=== PATIENT | female | born 1950 | race Caucasian/White ===

== ENCOUNTER → 2019-04-11 16:19 | Outpatient (CLI) | payer MEDICARE, OTHER, SELFPAY ==
[2019-04-11 10:19] VITALS: BMI 26.9
[2019-04-11 17:54] LABS: Anion Gap 9 (5-15); BUN 23 mg/dL (7-18); BUN/Creat Ratio 25.1 RATIO (10-20); Calcium,Total 9.6 mg/dL (8.5-10.1); Chloride 102 mmol/L (98-107); Creatinine, Serum 0.92 mg/dL (0.55-1.02); EST Glomerular Filtration Rate 65 mL/min (>60); Est Glom Filt Rate - Afr Amer 79 mL/min (>60); Glucose 147 mg/dL (74-106); Potassium 3.6 mmol/L (3.5-5.1); Sodium Level 141 mmol/L (136-145); Thyroid Stim Hormone (TSH) 6.45 uIU/mL (0.358-3.74)
== END ==
PROVIDERS: Family Provider Family Medicine; PCP Family Medicine; Referring Provider Internal Medicine Cardiovascular Disease; Visit Provider Internal Medicine Cardiovascular Disease
DX: I10 Essential (primary) hypertension (principal)
CPT/HCPCS: 36415; 80048; 84443

== ENCOUNTER 2020-09-19 14:15 | Emergency (ER) | payer MEDICARE, OTHER, SELFPAY ==
[2020-04-29 12:29] VITALS: BMI 25.9
[2020-09-19 14:17] VITALS: BP 154/105; PULSE 93; RESP 18; TEMP 36.6; O2SAT 95; BMI 26.6
[2020-09-19 15:02] LABS: Bacteria 0 SEEN /hpf (None Seen); Mucous, Urine 0 SEEN /hpf (<or=2+); Red Blood Cells-Urine 0 SEEN /hpf (0-5)
[2020-09-19 15:09] LABS: Glucose, Dipstick 250 mg/dl (Normal); Ketone-Dipstick Negative (Negative); Leukocyte Esterase-Dipstick 25 /ul (Negative); Nitrite-Dipstick Positive (Negative); Occult Blood-Urine Negative /ul (Negative); Protein-Dipstick 15 mg/dl (Negative); Specific Gravity, Urine 1.015 (1.002-1.030); Urine Clarity Clear (Clear); Urine Urobilinogen 4 mg/dl (Normal)
[2020-09-19 15:12] LABS: Color, Urine SEE COMMENT BELOW (Yellow); Urine Bilirubin Dipstick 3 mg/dL (Negative)
[2020-09-19 15:15] LABS: Squamous Epithelial Cells - UA 5-10 SEEN /hpf (5-10); White Blood Cells 0-5 SEEN /hpf (0-5)
--- NOTE | 2020-09-19 15:29 | ED.VIS.GEN ---
History of Present Illness Chief Complaint: Lower Extremity Injury Narrative: Patient presents with 2 complaints, she has dysuria consistent with a urinary tract infection for the past few days, she has also had left lower extremity swelling and some calf pain. She does not have any DVT or PE risk factors, no recent injury. He has no chest pain or shortness of breath. She denies any abdominal pain or flank pain. No fever or chills. Past medical history: Reviewed Medications: Reviewed Social history: Noncontributory Review of systems: All systems negative except as indicated General: No fever Eyes: No visual changes ENT: No upper airway congestion, normal voice Neck: No neck pain Cardiovascular: No chest pain Respiratory: No shortness of breath or cough Gastrointestinal: No abdominal pain, nausea vomiting or diarrhea Genitourinary: Dysuria, urgency and frequency dysuria Musculoskeletal: Lower extremity edema Skin: No rash Neurological: No memory loss, confusion or any focal weakness Psych: No recent behavioral changes Hematologic: No easy bleeding or easy bruising Physical exam General: Well nourished, Well developed, No Acute Distress Head: Normocephalic, Atraumatic Eyes: Conjunctiva not pale ENT: Moist mucous membranes Neck: Supple, Nontender, No lymphadenopathy Cardiovascular: Regular rate, Regular rhythm Respiratory: No distress, CTA bilaterally Abdomen: Soft, Nontender, Nondistended Back: Nontender, Normal Inspection. Negative for: CVA tenderness Extremities: Tenderness over the left lower extremity anteriorly there is very slight edema. There is no erythema or [place]. No calf pain to palpation. Skin: Normal color, No rash Neurological: Alert, Normal Strength, Normal Sensation Psychological: Normal affect Past Medical History - Allergies and Home Meds Allergies/Adverse Reactions: Allergies codeine Allergy (Verified 09/19/20 14:16) stomach upset Primary Care Physician: Cristino Sotelo DO [Primary Care Provider] - Smoking Status: Never smoker Physical Exam Vital Signs/Narrative: Vital Signs Temp Pulse Resp BP Pulse Ox 09/19/20 14:17 97.8 F 93 18 154/105 H 95 Diagnostic/Tx/Re-eval - Medical Decision Making Urinalysis is positive for urinary tract infection, per our hospital protocol patient will be given Lovenox subcu, she will come back tomorrow morning for a DVT study. Otherwise I will treat her urinary tract infection and give her Diflucan after her antibiotics. ED Disposition - Plan for ED Patient: Diagnosis: Lower extremity edema, Urinary tract infection Instructions: ED Peripheral Edema, Unilateral, ED Bladder Infection, Female (Adult) Prescriptions: Smz/Tmp Ds [Bactrim Ds] 1 tablet PO BID #14 tab Prescription Printed Referrals: Cristino Sotelo DO [Primary Care Provider] - 2 Days Additional Instructions: You will be set up for an ultrasound tomorrow morning, please return to make sure you do not have a blood clot.
--- NOTE | 2020-09-19 15:39 | DCINST.ED_ITS ---
ED Disposition - Plan for ED Patient: Diagnosis: Lower extremity edema, Urinary tract infection Instructions: ED Peripheral Edema, Unilateral, ED Bladder Infection, Female (Adult) Prescriptions: Smz/Tmp Ds [Bactrim Ds] 1 tablet PO BID #14 tab Prescription Printed Fluconazole [Diflucan] 150 mg PO X1 #1 tablet Transmission Status: Pending to [facility] Tizanidine HCl 2 mg PO BID #10 tablet Transmission Status: Pending to [facility] Referrals: Cristino Sotelo DO [Primary Care Provider] - 2 Days Additional Instructions: You will be set up for an ultrasound tomorrow morning, please return to make sure you do not have a blood clot.
[2020-09-19] MEDS: Enoxaparin 80 MG/0.8 ML Syringe 70 MG SC (15:42)
[2020-09-19] MEDS: Smz/Tmp Ds Tablet 1 TABLET PO (15:43)
[2020-09-19 15:48] VITALS: BP 148/97; PULSE 88; RESP 17; O2SAT 95
== END 2020-09-19 15:49 | disposition home or self-care (01) ==
PROVIDERS: Emergency Provider Emergency Medicine; PCP Family Medicine
DX: R60.0 Localized edema (principal); N39.0 Urinary tract infection, site not specified; M79.662 Pain in left lower leg; Z79.899 Other long term (current) drug therapy
CPT/HCPCS: 81001; 96372; 99283

== ENCOUNTER → 2020-09-20 10:05 | Outpatient (CLI) | payer MEDICARE, OTHER, SELFPAY ==
[2020-09-19 14:17] VITALS: BMI 26.6
--- NOTE | 2020-09-20 10:21 | VDLE_ITS ---
Reason For Study: pain Procedure LEFT This is a venous duplex using B-mode, color CFV is compressible, spontaneous, phasic, flow and spectral Doppler. competent, and demonstrates normal Exam performed in department. augmentation. The exam was abbreviated due to the COVID 19 FV is compressible, spontaneous, phasic, protocol. competent and demonstrates normal The exam was diagnostic. augmentation. Prelim given to Dr Marrero. POP V is compressible, spontaneous, phasic, competent and demonstrates normal augmentation. T/P Trunk is compressible. PTV is compressible. LT PerV is compressible. GSV at the ankle is dilated and noncompressible. VL/Venous Duplex US, Unilateral Interpretation Summary There is no evidence of left lower extremity deep vein thrombosis. Superficial thrombophlebitis of left great saphenous vein at the ankle COVID-19 protocol utilized Ordering Physician: Fran Gottlieb Referring Physician: Dr. Rahul Marrero Performed By: Piero Perez RVT
== END ==
PROVIDERS: PCP Family Medicine; Visit Provider Emergency Medicine
DX: M79.605 Pain in left leg (principal)
CPT/HCPCS: 93971

== ENCOUNTER → 2023-06-15 | Outpatient (CLI) | payer MEDICARE, OTHER, SELFPAY ==
--- NOTE | 2023-06-15 14:22 | ECHOD_ITS ---
Reason For Study: LEFT VENTRICULAR HYPERTROPHY Procedure This was a 2D Doppler, Color Flow transthoracic echocardiogram. Exam performed in department. Left Ventricle Normal LV size. Mild concentric left ventricular hypertrophy. Left ventricular systolic function is normal. The estimated ejection fraction is 55 %. Stage 1 diastolic dysfunction. No regional wall motion abnormalities noted. Right Ventricle Normal RV size. Normal systolic function. Atria Normal left atrium. Normal right atrium. Tricuspid Valve Normal tricuspid valve. Aortic Valve Normal aortic valve. Pulmonic Valve Normal pulmonic valve. Great Vessels Normal aortic root. The pulmonary artery is normal size. Normal inferior vena cava. Pericardium/Pleural No pericardial effusion. MMode/2D Measurements & Calculations LVIDd: 3.9 cm IVSd: 1.2 cm Ao root diam: 3.1 cm LVIDs: 2.5 cm LVPWd: 1.3 cm RVDd: 2.5 cm FS: 37.2 % LAV(MOD-bp): 56.1 ml LVAd ap4: 26.0 cm2 LVAd ap2: 21.2 cm2 LAV(MOD-bp) Indexed: 31.2 ml/m2 LVLd ap4: 7.7 cm LVLd ap2: 7.7 cm LAV(MOD-sp2): 64.8 ml EDV(MOD-sp4): 72.4 ml EDV(MOD-sp2): 50.3 ml LAV(MOD-sp4): 47.1 ml EDV(sp4-el): 74.0 ml EDV(sp2-el): 49.6 ml LVAs ap4: 16.2 cm2 LVAs ap2: 11.7 cm2 LVLs ap4: 6.3 cm LVLs ap2: 5.7 cm ESV(MOD-sp4): 34.8 ml ESV(MOD-sp2): 21.6 ml ESV(sp4-el): 35.3 ml ESV(sp2-el): 20.3 ml EF(MOD-sp4): 51.9 % EF(MOD-sp2): 57.0 % EF(sp4-el): 52.3 % SV(MOD-sp4): 37.6 ml SV(MOD-sp2): 28.6 ml SV(sp4-el): 38.7 ml LA dimension(2D): 3.7 cm LA A4 area: 17.7 cm2 RA A4 area: 12.1 cm2 TAPSE: 2.0 cm Time Measurements MV dec time: 0.22 sec Doppler Measurements & Calculations MV E max esau: 59.4 cm/sec Lat Peak E' Esau: 7.2 cm/sec Med Peak E' Esau: 6.1 cm/sec MV A max esau: 102.0 cm/sec E/E' lat: 8.3 E/E' med: 9.7 MV E/A: 0.58 MV V2 max: 112.5 cm/sec MV P1/2t max esau: 68.1 cm/sec Ao V2 max: 128.5 cm/sec MV max P.1 mmHg MV P1/2t: 61.7 msec Ao max P.6 mmHg MV V2 mean: 62.4 cm/sec MV dec slope: 323.2 cm/sec2 Ao V2 mean: 93.5 cm/sec MV mean P.8 mmHg Ao mean P.9 mmHg MV V2 VTI: 19.1 cm MVA(P1/2t): 3.6 cm2 Ao V2 VTI: 26.7 cm AV (velocity ratio): 0.91 LV V1 max: 113.1 cm/sec PA V2 max: 90.3 cm/sec LV V1 max P.1 mmHg PA V2 mean: 74.6 cm/sec LV V1 mean P.0 mmHg LV V1 mean: 84.6 cm/sec LV V1 VTI: 24.2 cm ECHO/Echo Complete Interpretation Summary Normal LV size. Left ventricular systolic function is normal. The estimated ejection fraction is 55 %. Stage 1 diastolic dysfunction. Mild concentric left ventricular hypertrophy. Ordering Physician: David Miranda Referring Physician: MARIA DE JESUS PHILLIPS Performed By: Ashely Oconnell, RDCS, RVT
--- OUTSIDE RECORDS SUMMARY | 2023-06-15 14:41 | XMS RPT_ITS | CCD ---
Author Name Unknown Address [address] [place] [address] Organization [facility] Care Team Providers Care Chin Strap Cutter Name Role Phone MD Ruben, David Abdalla Unavailable TIFFANY MORRIS Unavailable Unavailable Allergies Allergy Classification Reported Allergen(s) Allergy Type Date of Onset Reaction(s) Facility (2 sources) carvedilol Drug Allergy 6 itching [facility] Work Phone: (3 sources) codeine; Translations: [CODEINE] Drug Allergy 9 Shortness of breath [facility] Work Phone: (2 sources) NKDA drug allergy 3 [facility] Work Phone: (1 source) Latex; Translations: [LATEX] Propensity to adverse reactions to drug (disorder) 7 [facility] (1 source) salicylic acid; Translations: [SALICYLATES] Drug Allergy 0 [facility] Medications Completed/Discontinued Medications Medication Drug Class(es) Dates Sig (Normalized) Sig (Original) amLODIPine 10 mg oral tablet (4 sources) Dihydropyridine Calcium Channel Ricky Start: 05-06-2014 take 1 tablet by mouth once daily NORVASC 10 MG TABS One tablet by mouth daily AMLODIPINE BESYLATE [id number] David Miranda MD Problems Active Problems Problem Classification Problem Date Documented Da te Episodic/Chronic Conduction disorders (2 sources) Bifascicular block; Translations: [Bifascicular block] Onset: 09-18-2012 09-18-2012 Chronic Essential hypertension (2 sources) Hypertensive disorder; Translations: [Essential (primary) hypertension] Onset: 09-18-2012 09-18-2012 Chronic Past or Other Problems Problem Classification Problem Date Documented Date Episodic/Chronic Cardiac dysrhythmias (2 sources) Palpitations; Translations: [Palpitations] Onset: 09-19-2012 09-19-2012 Episodic Other inflammatory condition of skin (2 sources) Itching ; Translations: [Pruritus, unspecified] Onset: 05-07-2015 05-07-2015 Episodic Other nutritional; endocrine; and metabolic disorders (4 sources) Body mass index (BMI) 26.0-26.9, adult; Translations: [FH: Hypertension] Onset: 04-19-2013 05-07-2015 Episodic Other nutritional; endocrine; and metabolic disorders (1 source) Body mass index (BMI) 27.0-27.9, adult; Translations: [Body mass index (BMI) 27.0-27.9, adult] Onset: 04-19-2013 04-19-2013 Episodic Other screening for suspected conditions (not mental disorders or infectious disease) (2 sources) Abnormal electrocardiogram [ECG] [EKG]; Translations: [Abnormal electrocardiogram [ECG] [EKG]] Onset: 12-16-2015 12-16-2015 Episodic Residual codes; unclassified (1 source) FH: Hypertension; Translations: [Family history of ischemic heart disease and other diseases of the circulatory system] 05-06-2014 Episodic Results Test Name Value Interpretation Reference Range Facil ity Vital Signs Date Time Vital Sign Value Performing Clinician Erin girard 03-28-2017 16:29-0400 BMI (Body Mass Index) 25.06 kg/m2 MD [facility] Work Phone: 03-28-2017 16:29-0400 BP Diastolic 60 mm[Hg] MD [facility] Work Phone: 03-28-2017 16:29-0400 BP Systolic 120 mm[Hg] MD [facility] Work Phone: 03-28-2017 16:29-0400 Height 167.64 cm MD [facility] Work Phone: 03-28-2017 16:29-0400 Pulse (Heart Rate) 76 /min MD [facility] Work Phone: 03-28-2017 16:29-0400 Respiratory Rate 20 /min MD [facility] Work Phone: 03-28-2017 16:29-0400 Weight 70.44 kg MD [facility] Work Phone: 06-15-2016 11:50-0500 BSA (Body Surface Area) 1.88 m2 MD [facility] Work Phone: 05-07-2015 12:13-0500 Heart rate 81 /min MD [facility] Work Phone: Encounters Encounter Date Encounter Type Care Provider Facility Start: 02-27-2017 [facility] Procedures Date Procedure Procedure Detail Performing Clinician Start: 03-28-2017 End: 03-29-2017 *BMP David Miranda MD Start: 03-28-2017 End: 03-28-2017 YODIT Miranda MD Start: 03-28-2017 End: 03-28-2017 Follow Up Appt 1 year David Miranda MD Start: 06-15-2016 End: 06-15-2016 YODIT Dhillon PA-C Work Phone: Start: 06-15-2016 End: 06-15-2016 Follow Up Appt 9 months Stephany hinds PA-C Work Phone: Start: 06-15-2016 End: 06-15-2016 Dietary management education, guidance, and counseling David Miranda MD Start: 12-17-2015 End: 12-17-2015 Follow Up Appt 6 months Sudhakar Corrales Start: 12-17-2015 End: 12-17-2015 LIT Miranda MD Start: 05-07-2015 End: 06-08-2016 Ecg routine ecg w/least 12 lds w/i&r Stephany Dhillon PA-C Work Phone: Start: 05-07-2015 End: 05-07-2015 Follow Up Appt 6 months Stephany hinds PA-C Work Phone: Start: 05-07-2015 End: 05-07-2015 M Stephany Dhillon PA-C Work Phone: Start: 05-06-2014 End: 05-06-2014 Follow Up Appt 1 year David Miranda MD Start: 05-06-2014 End: 05-06-2014 LIT Miranda MD Start: 10-22-2013 End: 10-22-2013 YODIT Dhillon PA-C Work Phone: Start: 10-22-2013 End: 10-22-2013 Follow Up Appt 6 months Stephany hinds PA-C Work Phone: Start: 04-19-2013 End: 04-19-2013 Ecg routine ecg w/least 12 lds w/i&r David Miranda MD Start: 04-19-2013 End: 04-19-2013 Follow Up Appt 6 months Sudhakar Corrales Start: 04-19-2013 End: 04-19-2013 LIT Miranda MD Start: 12-27-2012 End: 12-27-2012 YODIT Dhillon PA-C Work Phone: Start: 12-27-2012 End: 12-27-2012 Follow Up Appt 6 months Stephany hinds PA-C Work Phone: Start: 09-19-2012 End: 10-02-2012 *BMP David Miranda MD Start: 09-19-2012 End: 10-02-2012 24 hour holter monitor David Miranda MD Start: 09-19-2012 End: 09-19-2012 Ecg routine ecg w/least 12 lds w/i&r David Miranda MD Start: 09-19-2012 End: 09-27-2012 Echocardiography David Miranda MD Start: 09-19-2012 End: 09-19-2012 Follow Up Appt 3 months Sudhakar Corrales Start: 09-19-2012 End: 09-19-2012 MMM David Miranda MD Plan of Treatment Date Care Activity Detail Author Start: 03-29-2018 End: 03-29-2018 Appointment Appointment [facility] Work Phone: Start: 03-28-2017 End: 03-29-2017 *BMP *BMP [facility] Work Phone: Start: 03-28-2017 End: 03-28-2017 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 GUN MECHANIC [facility] Work Phone: Start: 03-28-2017 End: 03-28-2017 Follow Up Appt 1 year Follow Up Appt 1 year [facility] Work Phone: Start: 06-15-2016 End: 06-15-2016 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 GUN MECHANIC [facility] Work Phone: Start: 06-15-2016 End: 06-15-2016 Follow Up Appt 9 months Follow Up Appt 9 months [facility] Work Phone: Start: 12-17-2015 End: 12-17-2015 Follow Up Appt 6 months Follow Up Appt 6 months [facility] Work Phone: Start: 12-17-2015 End: 12-17-2015 MMM MMM [facility] Work Phone: Start: 05-07-2015 End: 06-08-2016 Ecg routine ecg w/least 12 lds w/i&r EKG (In office) [facility] Work Phone: Start: 05-07-2015 End: 05-07-2015 Follow Up Appt 6 months Follow Up Appt 6 months [facility] Work Phone: Start: 05-07-2015 End: 05-07-2015 PFM PFM [facility] Work Phone: Start: 05-06-2014 End: 05-06-2014 Follow Up Appt 1 year Follow Up Appt 1 year [facility] Work Phone: Start: 05-06-2014 End: 05-06-2014 MMM MMM [facility] Work Phone: Start: 10-22-2013 End: 10-22-2013 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 [facility] Work Phone: Start: 10-22-2013 End: 10-22-2013 Follow Up Appt 6 months Follow Up Appt 6 months [facility] Work Phone: Start: 04-19-2013 End: 04-19-2013 Ecg routine ecg w/least 12 lds w/i&r EKG (In office) [facility] Work Phone: Start: 04-19-2013 End: 04-19-2013 Follow Up Appt 6 months Follow Up Appt 6 months [facility] Work Phone: Start: 04-19-2013 End: 04-19-2013 MMM MMM [facility] Work Phone: Start: 12-27-2012 End: 12-27-2012 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 GUN MECHANIC [facility] Work Phone: Start: 12-27-2012 End: 12-27-2012 Follow Up Appt 6 months Follow Up Appt 6 months [facility] Work Phone: Start: 09-19-2012 End: 10-02-2012 *BMP *BMP [facility] Work Phone: Start: 09-19-2012 End: 09-19-2012 24 hour holter monitor 24 hour holter monitor [facility] Work Phone: Start: 09-19-2012 End: 09-19-2012 Ecg routine ecg w/least 12 lds w/i&r EKG (In office) [facility] Work Phone: Start: 09-19-2012 End: 09-19-2012 Echocardiography Echocardiogram (complete) [facility] Work Phone: Start: 09-19-2012 End: 09-19-2012 Follow Up Appt 3 months Follow Up Appt 3 months [facility] Work Phone: Start: 09-19-2012 End: 09-19-2012 MMM MMM [facility] Work Phone: Summary Purpose Family History No Family History Records FoundNo Family History Records FoundNo Family History Records Found Advance Directives No Advanced Directives Records FoundNo Advanced Directives Records FoundNo Advanced Directives Records Found Additional Source Comments INFORMATION SOURCE (unrecogn ized section and content) DATE CREATED AUTHOR AUTHOR'S ORGANIZ ATION 09/18/2021 [facility] DATE CREATED AUTHOR AUTHOR'S ORGANIZ ATION 09/18/2021 [facility] FOR RECORDS PERTAINING TO PATIENTS WHO ARE OR HAVE BEEN ENROLLED IN A CHEMICAL DEPENDENCY/SUBSTANCEABUSE PROGRAM, SOME INFORMATION MAY BE OMITTED. This clinical summary was aggregated from multiple sources. Caution should be exercised in using it in the provision of clinical care. This summary normalizes information from multiple sources, and as a consequence, information in this document may materially change the coding, format and clinical context of patient data. In addition, data may be omitted in some cases. CLINICAL DECISIONS SHOULD BE BASED ON THE PRIMARY CLINICAL RECORDS. [employer] [facility]. provides no warranty or guarantee of the accuracy or completeness of information in this document.
== END | disposition home or self-care (01) ==
PROVIDERS: PCP Family Medicine; Referring Provider Internal Medicine Cardiovascular Disease; Visit Provider Internal Medicine Cardiovascular Disease
DX: I10 Essential (primary) hypertension (principal); I51.7 Cardiomegaly
CPT/HCPCS: 93306

== ENCOUNTER → 2024-05-24 | Outpatient (CLI) | payer MEDICARE, OTHER, SELFPAY ==
[2024-05-24 15:31] LABS: Absolute Lymphocyte Count 2.74 X10^3/uL (0.83-4.51); Absolute Neutrophil Count 8.5 X10^3/uL (2.0-7.7); Basophil# 0.05 X10^3/uL; Basophil% 0.4 % (0-1); Eosinophil# 0.22 X10^3/uL; Eosinophils% 1.8 % (0-5); Hematocrit 46.4 % (37-47); Hemoglobin 16.1 g/dL (12.0-15.0); Lymphocyte # 2.74 X10^3/ul (0.83-4.51); Lymphocyte % 22.5 % (19-41); Mean Corp Hgb Conc 34.7 g/dL (32-36); Mean Corpuscular Hgb 29.2 pg (27.0-32.0); Mean Corpuscular Volume 84.1 fL (81-99); Mean Platelet Vol. 11.3 fl (6.2-12.0); Monocyte# 0.62 X10^3/uL; Monocyte% 5.1 % (0-10); NRBC Flagged by Analyzer 0 % (0-5); Neutrophil # 8.47 X10^3/uL (2.7-7.7); Neutrophil % 69.7 % (47-70); Platelet Count 277 K/mm3 (150-450); RBC Distribution Width CV 12.8 % (11.6-14.6); RBC Distribution Width SD 39.3 fl (35.1-43.9); Red Blood Count 5.52 M/mm3 (4.2-5.4); White Blood Count 12.2 K/mm3 (4.4-11.0)
[2024-05-24 16:11] LABS: AST(SGOT) 34 U/L (15-37); Alanine Aminotransfer ALT/SGPT 40 U/L (13-56); Albumin, Serum 3.9 g/dL (3.2-5.0); Alkaline Phosphatase 83 U/L (45-117); Anion Gap 10 (5-15); BUN 24 mg/dL (7-18); BUN/Creat Ratio 25.2 RATIO (10-20); Bilirubin, Direct 0.06 mg/dL (0.00-0.30); Calcium,Total 9.6 mg/dL (8.5-10.1); Chloride 94 mmol/L (98-107); Cholesterol 197 mg/dL (200); Creatinine, Serum 0.95 mg/dL (0.55-1.02); EST Glomerular Filtration Rate 61 mL/min (>60); Est Glom Filt Rate - Afr Amer 74 mL/min (>60); Globulin 3.9 g/dL (2.2-4.2); Glucose 265 mg/dL (74-106); High Density Lipoprotein 51 mg/dL; Potassium 2.8 mmol/L (3.5-5.1); Protein, Total 7.8 g/dL (6.4-8.2); Sodium Level 134 mmol/L (136-145); Triglycerides 386 mg/dL; Very Low Density Lipoprotein 77 mg/dL (5-40)
== END | disposition home or self-care (01) ==
LOC: LAB 14:23
PROVIDERS: PCP Family Medicine; Referring Provider Internal Medicine Cardiovascular Disease; Visit Provider Internal Medicine Cardiovascular Disease
DX: I10 Essential (primary) hypertension (principal); E03.9 Hypothyroidism, unspecified
CPT/HCPCS: 36415; 80048; 80061; 80076; 84443; 85025

== ENCOUNTER → 2024-05-30 | Outpatient (CLI) | payer MEDICARE, OTHER, SELFPAY ==
[2024-05-30 12:07] LABS: Anion Gap 6 (5-15); BUN 21 mg/dL (7-18); BUN/Creat Ratio 26.1 RATIO (10-20); Calcium,Total 9.5 mg/dL (8.5-10.1); Chloride 98 mmol/L (98-107); Creatinine, Serum 0.81 mg/dL (0.55-1.02); EST Glomerular Filtration Rate 74 mL/min (>60); Est Glom Filt Rate - Afr Amer 90 mL/min (>60); Glucose 164 mg/dL (74-106); Potassium 3.5 mmol/L (3.5-5.1); Sodium Level 136 mmol/L (136-145)
== END | disposition home or self-care (01) ==
LOC: LAB 10:57
PROVIDERS: PCP Family Medicine; Referring Provider Nurse Practitioner Family; Visit Provider Nurse Practitioner Family
DX: E87.6 Hypokalemia (principal)
CPT/HCPCS: 36415; 80048

== ENCOUNTER → 2024-06-25 | Outpatient (CLI) | payer MEDICARE, OTHER, SELFPAY ==
--- NOTE | 2024-06-25 14:28 | CT_ITS ---
STUDY: CT CHEST WITHOUT CONTRAST REASON FOR EXAM: Female, 73 years old. HTN RADIATION DOSAGE (If Supplied By Facility): CTDIvol = ( 12.19 ) mGy, DLP = ( 195.04 ) mGycm TECHNIQUE: Transaxial imaging was performed without the administration of intravenous contrast material. Cardiac over read examination. Individualized dose optimization techniques were used for this CT. COMPARISON: No relevant priors. FINDINGS: CHEST The lungs are normal. There is no demonstrated pleural abnormality. Mild coronary artery calcification. There are oblique small lymph nodes within the mediastinum, which are normal in size and morphology most compatible with reactive lymph hyperplasia. Normal hilar regions. Normal unenhanced pulmonary arteries. There is atherosclerotic calcification of the aortic arch. Normal osseous structures. There is no demonstrated abnormality of the visualized upper abdomen. CT/Limited Chest CT Cardiac Only IMPRESSION: Mild coronary calcification. Electronically Signed: Eulalio Torres MD at 14:34 EST ,
--- NOTE | 2024-06-25 16:42 | CA.SCORE ---
Calcium Scoring Date of Study:: 06/25/24 Indications Indications: HTN Coronary Calcium Scoring: High-resolution Computed Tomographic imaging of the chest was performed on [06/25/24 ], with particular attention paid to the coronary arteries. Images from the examination were analyzed for the presence and extent of coronary artery calcification , using coronary calcium quantification software. The patient tolerated the procedure well and there were no complications. The results of the coronary calcification analysis are provided below. Findings Coronary Artery Left Main (LM): 0 Left Anterior Descending (LAD): 0 Left Circumflex (LCX): 0 Right Coronary Artery (RCA): 16.7 Total Agatston Score: 16.7 Percentile Rankin% to 50% Calcium Scoring Interpretation: Different methods to categorize the overall amount of coronary plaque. Overall amount CAC SIS Visual of coronary plaque P1 Mild -100 <2 1-2 vessels with mild amount of plaque P2 Moderate 101-300 3-4 1-2 vessels with moderate amount, 3 vessels with mild amount of plaque P3 Severe 301-999 5-7 3 vessels with moderate amount, 1 vessel with severe amount of plaque P4 Extensive >1000 >8 2-3 vessels with severe amount of plaque Conclusion: Minimal one vessel atherosclerotic plaque
== END | disposition home or self-care (01) ==
LOC: CT 14:26
PROVIDERS: PCP Family Medicine; Referring Provider Internal Medicine Cardiovascular Disease; Visit Provider Internal Medicine Cardiovascular Disease
DX: I10 Essential (primary) hypertension (principal)
CPT/HCPCS: 75571; 76380

== ENCOUNTER → 2024-10-23 | Outpatient (CLI) | payer MEDICARE, OTHER, SELFPAY ==
[2024-10-24 10:59] LABS: Anion Gap 15 (5-15); BUN 15 mg/dL (4-19); BUN/Creat Ratio 16.5 RATIO (10-20); Calcium,Total 9.5 mg/dL (7.6-11.0); Carbon Dioxide 27.3 mmol/L (21.0-32.0); Chloride 96 mmol/L (98-108); Creatinine, Serum 0.89 mg/dL (0.70-1.20); EST Glomerular Filtration Rate 69 (>60); Glucose 370 mg/dL (70-99); Potassium 3.6 mmol/L (3.3-5.1); Sodium Level 139 mmol/L (133-145)
== END | disposition home or self-care (01) ==
LOC: LAB 13:46
PROVIDERS: PCP Family Medicine; Referring Provider Physician Assistant Medical; Visit Provider Physician Assistant Medical
DX: E87.6 Hypokalemia (principal)
CPT/HCPCS: 36415; 80048

== ENCOUNTER → 2025-05-27 | Outpatient (CLI) | payer MEDICARE, OTHER, SELFPAY ==
[2025-05-27 17:28] LABS: Anion Gap 11 (7-18); BUN 18 mg/dL (4-19); BUN/Creat Ratio 21.2 RATIO (10-20); Calcium,Total 9.8 mg/dL (7.6-11.0); Carbon Dioxide 28.0 mmol/L (20.0-29.0); Chloride 100 mmol/L (96-106); Glucose 315 mg/dL (70-99); Potassium 3.8 mmol/L (3.5-5.1)
== END | disposition home or self-care (01) ==
LOC: LAB 16:15
PROVIDERS: PCP Family Medicine; Referring Provider Physician Assistant Medical; Visit Provider Physician Assistant Medical
DX: I10 Essential (primary) hypertension (principal); E87.6 Hypokalemia
CPT/HCPCS: 36415; 80048